=== PATIENT | male | born 1945 | race Caucasian/White ===

== ENCOUNTER 2023-08-23 04:44 | Inpatient (IN) | payer MEDICARE ==
[~2023-08-23] VITALS: Ht 175.3 cm; Wt 72.6 kg
[2023-08-23] MEDS ORDERED: LORAZEPAM 0.5 MG TABLET PO PRN (07:00)
[2023-08-23] MEDS ORDERED: ACETAMINOPHEN 325 MG TABLET PO PRN (07:00)
[2023-08-23] MEDS ORDERED: MAG HYDROX/AL HYDROX/SIMETH 30 ML UDC PO PRN (07:00)
[2023-08-23] MEDS ORDERED: TEMAZEPAM 7.5 MG CAPSULE PO PRN (07:00)
[2023-08-23] MEDS ORDERED: MAGNESIUM HYDROXIDE 30 ML UDC PO PRN (07:00)
[2023-08-23 08:00] VITALS: BP 146/116; TEMP 98; O2SAT 96
[2023-08-23] MEDS ORDERED: BLOOD SUGAR DIAGNOSTIC 1 EACH STRIP IN ONE (08:30)
[2023-08-23] MEDS ORDERED: AMLO10TA4 PO (10:26)
[2023-08-23] MEDS ORDERED: MIRT-90 PO (10:26)
[2023-08-23] MEDS ORDERED: TRAZ-182 PO (10:26)
[2023-08-23] MEDS ORDERED: EZET10TA16 PO (10:26)
[2023-08-23] MEDS ORDERED: CLON0.5T PO (10:26)
[2023-08-23] MEDS: DIVALPROEX SODIUM 250 MG TABLET.DR PO SCH ×2 (12:31→16:46)
[2023-08-23 16:00] VITALS: BP 134/76; TEMP 98; O2SAT 98
[2023-08-23 20:00] VITALS: BP 138/94; TEMP 97.4; O2SAT 97
[2023-08-24 06:19] LABS: BASOPHILS % (AUTO) 0.5 % (0.0-2.0); EOSINOPHILS # (AUTO) 0.2 K/uL (0.0-0.7); EOSINOPHILS % (AUTO) 2.1 % (0.0-6.0); HEMATOCRIT 46 % (39-51); HEMOGLOBIN 15.5 g/dL (13.5-17.5); LYMPHOCYTES # (AUTO) 1.4 K/uL (0.8-4.8); MEAN CORPUSCULAR HEMOGLOBIN 32 PG (26.0-33.0); MEAN CORPUSCULAR HGB CONC 33 g/dl (31.0-36.0); MEAN CORPUSCULAR VOLUME 96 fL (80-96); MONOCYTES # (AUTO) 0.5 K/uL (0.1-1.30); MONOCYTES % (AUTO) 6.1 % (2.0-12.0); NEUTROPHILS # (AUTO) 5.3 K/uL (1.8-8.9); NEUTROPHILS % (AUTO) 72.3 % (43.0-81.0); PLATELET COUNT (AUTO) 173 K/uL (150-450); RED BLOOD CELL COUNT(AUTO) 4.84 MIL/uL (4.5-6.0); RED CELL DISTRIBUTION WIDTH 13.7 % (11.5-15.0); WHITE BLOOD COUNT (AUTO) 7.4 K/uL (4.3-11.0)
[2023-08-24 06:40] LABS: CALCIUM, SERUM 9.1 mg/dL (8.5-10.1); CARBON DIOXIDE 29 mmol/L (21-32); CHLORIDE 102 mmol/L (98-107); CREATININE 0.7 mg/dL (0.6-1.3); GLUCOSE 97 mg/dL (74-106); POTASSIUM 4.1 mmol/L (3.5-5.1); SODIUM SERUM 137 mmol/L (136-145); UREA NITROGEN, BLOOD 15 mg/dL (7-18)
[2023-08-24 06:54] LABS: CHOLESTEROL 186 mg/dL (<200); HDL CHOLESTEROL 56 mg/dL (40-60); LDL 114 mg/dL (0-99); TRIGLYCERIDES 68 mg/dL (30-150)
[2023-08-24 08:00] VITALS: BP 146/79; TEMP 97.6; O2SAT 96
[2023-08-24] MEDS: EZETIMIBE 10 MG TABLET PO SCH (09:30)
[2023-08-24] MEDS: AMLODIPINE BESYLATE 10 MG TABLET PO SCH (09:30)
[2023-08-24] MEDS: DIVALPROEX SODIUM 250 MG TABLET.DR PO SCH ×4 (09:30→17:00)
[2023-08-24 16:00] VITALS: BP 122/65; TEMP 98; O2SAT 95
[2023-08-24 20:10] VITALS: BP 136/83; TEMP 98.1; O2SAT 97
[2023-08-25 08:00] VITALS: BP 126/77; TEMP 98.1; O2SAT 96
[2023-08-25] MEDS: DIVALPROEX SODIUM 250 MG TABLET.DR PO SCH ×3 (08:50→16:33)
[2023-08-25] MEDS: AMLODIPINE BESYLATE 10 MG TABLET PO SCH (08:50)
[2023-08-25] MEDS: EZETIMIBE 10 MG TABLET PO SCH (08:50)
[2023-08-25 14:23] LABS: THYROID STIMULATING HORMONE 0.797 uIU/mL (0.358-3.74)
[2023-08-25 16:00] VITALS: BP 126/81; TEMP 97.7; O2SAT 97
[2023-08-25] MEDS: CYANOCOBALAMIN 500 MCG TABLET PO SCH (16:33)
[2023-08-25 21:05] VITALS: BP 137/84; TEMP 97.8; O2SAT 97
[2023-08-26 08:00] VITALS: BP 127/79; TEMP 97.5; O2SAT 96
[2023-08-26] MEDS: EZETIMIBE 10 MG TABLET PO SCH (08:31)
[2023-08-26] MEDS: DIVALPROEX SODIUM 250 MG TABLET.DR PO SCH ×3 (08:31→16:16)
[2023-08-26] MEDS: AMLODIPINE BESYLATE 10 MG TABLET PO SCH (08:31)
[2023-08-26] MEDS: CYANOCOBALAMIN 500 MCG TABLET PO SCH (08:31)
[2023-08-26 09:07] LABS: FOLIC ACID 9.5 ng/mL (>3.0)
[2023-08-26 16:00] VITALS: BP 126/74; TEMP 98.2; O2SAT 97
[2023-08-26 19:51] VITALS: BP 122/74; TEMP 97.5; O2SAT 96
[2023-08-27 08:00] VITALS: BP_SYST 120; BP_SYST 97; BP_DIAS 107; BP_DIAS 73; TEMP 97.9; TEMP 98.6; O2SAT 98; O2SAT 99
[2023-08-27] MEDS: EZETIMIBE 10 MG TABLET PO SCH (08:24)
[2023-08-27] MEDS: CYANOCOBALAMIN 500 MCG TABLET PO SCH (08:25)
[2023-08-27] MEDS: AMLODIPINE BESYLATE 10 MG TABLET PO SCH (08:25)
[2023-08-27] MEDS: DIVALPROEX SODIUM 250 MG TABLET.DR PO SCH ×3 (08:25→16:21)
[2023-08-27 16:00] VITALS: BP 111/75; TEMP 98.1; O2SAT 100
[2023-08-27 16:03] VITALS: BP 111/75; TEMP 98.1; O2SAT 98
[2023-08-27 20:56] VITALS: BP 124/80; TEMP 98.1; O2SAT 98
[2023-08-28 07:46] LABS: VALPROIC ACID 41 ug/mL (50-100)
[2023-08-28 07:49] LABS: BASOPHILS % (AUTO) 0.4 % (0.0-2.0); EOSINOPHILS # (AUTO) 0.2 K/uL (0.0-0.7); EOSINOPHILS % (AUTO) 2.9 % (0.0-6.0); HEMATOCRIT 49 % (39-51); HEMOGLOBIN 15.8 g/dL (13.5-17.5); LYMPHOCYTES # (AUTO) 1.6 K/uL (0.8-4.8); LYMPHOCYTES % (AUTO) 22.3 % (20.0-44.0); MEAN CORPUSCULAR HEMOGLOBIN 31 PG (26.0-33.0); MEAN CORPUSCULAR HGB CONC 33 g/dl (31.0-36.0); MEAN CORPUSCULAR VOLUME 96 fL (80-96); MONOCYTES # (AUTO) 0.5 K/uL (0.1-1.30); MONOCYTES % (AUTO) 7.4 % (2.0-12.0); NEUTROPHILS # (AUTO) 4.8 K/uL (1.8-8.9); PLATELET COUNT (AUTO) 170 K/uL (150-450); RED BLOOD CELL COUNT(AUTO) 5.04 MIL/uL (4.5-6.0); RED CELL DISTRIBUTION WIDTH 13.7 % (11.5-15.0); WHITE BLOOD COUNT (AUTO) 7.2 K/uL (4.3-11.0)
[2023-08-28 08:00] VITALS: BP 138/85; TEMP 98.6; O2SAT 96
[2023-08-28 08:00] LABS: ALANINE AMINOTRANSFERASE 22 U/L (12-78); ALBUMIN 3.2 g/dL (3.4-5.0); ALKALINE PHOSPHATASE 82 U/L (46-116); ASPARTATE AMINOTRANSFERASE 17 U/L (15-37); BILIRUBIN,TOTAL 0.9 mg/dL (0.2-1.0); CALCIUM, SERUM 9.3 mg/dL (8.5-10.1); CARBON DIOXIDE 25 mmol/L (21-32); CHLORIDE 104 mmol/L (98-107); CREATININE 0.5 mg/dL (0.6-1.3); GLUCOSE 95 mg/dL (74-106); POTASSIUM 3.8 mmol/L (3.5-5.1); SODIUM SERUM 136 mmol/L (136-145); UREA NITROGEN, BLOOD 19 mg/dL (7-18)
[2023-08-28] MEDS: DIVALPROEX SODIUM 250 MG TABLET.DR PO SCH ×3 (08:37→16:43)
[2023-08-28] MEDS: CYANOCOBALAMIN 500 MCG TABLET PO SCH (08:37)
[2023-08-28] MEDS: EZETIMIBE 10 MG TABLET PO SCH (08:37)
[2023-08-28] MEDS: AMLODIPINE BESYLATE 10 MG TABLET PO SCH (08:38)
[2023-08-28 16:00] VITALS: BP 121/72; TEMP 98.6; O2SAT 99
[2023-08-28 20:16] VITALS: BP 104/61; TEMP 97.7; O2SAT 97
[2023-08-29 08:00] VITALS: BP 121/71; TEMP 97.7; O2SAT 96
[2023-08-29] MEDS: CYANOCOBALAMIN 500 MCG TABLET PO SCH (08:34)
[2023-08-29] MEDS: EZETIMIBE 10 MG TABLET PO SCH (08:34)
[2023-08-29] MEDS: DIVALPROEX SODIUM 250 MG TABLET.DR PO SCH ×3 (08:34→16:53)
[2023-08-29] MEDS: AMLODIPINE BESYLATE 10 MG TABLET PO SCH (08:35)
[2023-08-29 16:00] VITALS: BP 114/69; TEMP 97.8; O2SAT 98
[2023-08-29 20:00] VITALS: BP 138/77; TEMP 98.3; O2SAT 98
[2023-08-30 08:00] VITALS: BP 112/72; TEMP 98.1; O2SAT 97
[2023-08-30] MEDS: EZETIMIBE 10 MG TABLET PO SCH (09:39)
[2023-08-30] MEDS: CYANOCOBALAMIN 500 MCG TABLET PO SCH (09:39)
[2023-08-30] MEDS: DIVALPROEX SODIUM 250 MG TABLET.DR PO SCH ×3 (09:39→16:48)
[2023-08-30] MEDS: AMLODIPINE BESYLATE 10 MG TABLET PO SCH (09:40)
[2023-08-30 16:00] VITALS: BP 123/77; TEMP 97.4; O2SAT 94
[2023-08-30 20:00] VITALS: BP 122/77; TEMP 98.3; O2SAT 98
[2023-08-31 08:00] VITALS: BP 112/72; TEMP 98.1; O2SAT 98
[2023-08-31] MEDS: EZETIMIBE 10 MG TABLET PO SCH (08:07)
[2023-08-31] MEDS: AMLODIPINE BESYLATE 10 MG TABLET PO SCH (08:07)
[2023-08-31] MEDS: DIVALPROEX SODIUM 250 MG TABLET.DR PO SCH ×3 (08:07→17:30)
[2023-08-31] MEDS: CYANOCOBALAMIN 500 MCG TABLET PO SCH (08:07)
[2023-08-31 16:00] VITALS: BP 100/70; TEMP 97.9; O2SAT 96
[2023-08-31 21:05] VITALS: BP 104/68; TEMP 98.1; O2SAT 99
[2023-09-01] MEDS: AMLODIPINE BESYLATE 10 MG TABLET PO SCH (08:26)
[2023-09-01] MEDS: EZETIMIBE 10 MG TABLET PO SCH (08:29)
[2023-09-01] MEDS: CYANOCOBALAMIN 500 MCG TABLET PO SCH (08:29)
[2023-09-01] MEDS: DIVALPROEX SODIUM 250 MG TABLET.DR PO SCH ×3 (08:29→17:18)
[2023-09-01 16:00] VITALS: BP 110/68; TEMP 97.8; O2SAT 96
[2023-09-01 20:24] VITALS: BP 116/77; TEMP 97.9; O2SAT 98
[2023-09-02 08:00] VITALS: BP 108/77; TEMP 98.1; O2SAT 97
[2023-09-02] MEDS: DIVALPROEX SODIUM 250 MG TABLET.DR PO SCH ×3 (08:44→16:03)
[2023-09-02] MEDS: EZETIMIBE 10 MG TABLET PO SCH (08:44)
[2023-09-02] MEDS: CYANOCOBALAMIN 500 MCG TABLET PO SCH (08:44)
[2023-09-02] MEDS: AMLODIPINE BESYLATE 10 MG TABLET PO SCH (08:45)
[2023-09-02 16:00] VITALS: BP 124/77; TEMP 98.4; O2SAT 97
[2023-09-02] MEDS ORDERED: Z GUARD REMEDY 4 OZ OINT TP PRN (16:30)
[2023-09-02 20:32] VITALS: BP 136/78; TEMP 97.5; O2SAT 97
[2023-09-02] MEDS: Z GUARD REMEDY 4 OZ OINT TP SCH (20:53)
[2023-09-03 08:00] VITALS: BP 131/81; TEMP 97.8; O2SAT 97
[2023-09-03] MEDS: CYANOCOBALAMIN 500 MCG TABLET PO SCH (09:14)
[2023-09-03] MEDS: DIVALPROEX SODIUM 250 MG TABLET.DR PO SCH ×3 (09:15→16:38)
[2023-09-03] MEDS: Z GUARD REMEDY 4 OZ OINT TP SCH ×2 (09:15→21:02)
[2023-09-03] MEDS: AMLODIPINE BESYLATE 10 MG TABLET PO SCH (09:15)
[2023-09-03] MEDS: EZETIMIBE 10 MG TABLET PO SCH (09:15)
[2023-09-03 16:00] VITALS: BP 110/73; TEMP 98.6; O2SAT 99
[2023-09-03 20:33] VITALS: BP 131/70; TEMP 97.8; O2SAT 97
[2023-09-04 08:00] VITALS: BP 136/79; TEMP 97.9; O2SAT 96
[2023-09-04] MEDS: CYANOCOBALAMIN 500 MCG TABLET PO SCH (08:55)
[2023-09-04] MEDS: EZETIMIBE 10 MG TABLET PO SCH (08:55)
[2023-09-04] MEDS: DIVALPROEX SODIUM 250 MG TABLET.DR PO SCH ×2 (08:55→12:29)
[2023-09-04 08:56] VITALS: BP 136/79
[2023-09-04] MEDS: AMLODIPINE BESYLATE 10 MG TABLET PO SCH (08:56)
[2023-09-04] MEDS: Z GUARD REMEDY 4 OZ OINT TP SCH (08:56)
== END 2023-09-04 14:30 | DRG 885 ==
LOC: GPS 06:22
PROVIDERS: ADMIT Psychiatry & Neurology Psychosomatic Medicine; ATTEND Internal Medicine
DX: F39 Unspecified mood [affective] disorder (principal); E44.1 Mild protein-calorie malnutrition; F03.93 Unspecified dementia, unspecified severity, with mood disturbance; F03.94 Unspecified dementia, unspecified severity, with anxiety; F32.A Depression, unspecified; I10 Essential (primary) hypertension; F41.9 Anxiety disorder, unspecified; E88.09 Other disorders of plasma-protein metabolism, not elsewhere classified; Z81.8 Family history of other mental and behavioral disorders; Z20.822 Contact with and (suspected) exposure to COVID-19; Z73.6 Limitation of activities due to disability; M62.81 Muscle weakness (generalized); F29 Unspecified psychosis not due to a substance or known physiological condition; Z68.23 Body mass index [BMI] 23.0-23.9, adult
CPT/HCPCS: 36415; 70450-TC; 80048-TC; 80053-TC; 80061-TC; 80164-TC; 82607-TC; 83921; 84439-TC; 84443-TC; 85025-TC; 87081-TC; 97110-TC; 97116-TC; 97530-TC